=== PATIENT | female | born 1990 | race African-American/Black ===

== ENCOUNTER 2018-03-14 23:30 | Emergency (ER) | payer OTHER ==
--- NOTE | 2018-03-15 00:15 | EDPHY ---
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 Patient has a long history of depression. She is compliant with her antidepressants. She has been drinking and states she is drinking daily. In the last 8 months she has had significant stressors including divorce, losing custody of her child, being evicted and having a DUI. She has plans of going into the mountains and hanging herself. No prior suicide attempts. Denies any other ingestions. No fevers or chills. No cough. Has some mild nausea at this time. ROS: 10 systems were reviewed and were negative except those elements noted in the HPI. PMH: Depression, asthma Social History: Positive smoking, daily alcohol Family History: non-contributory Physical Exam: Gen: Awake, Alert, No Distress, tearful, slurred speech HEENT: Nose: no rhinorrhea Eyes: PERRLA, EOMI Mouth: Moist mucosa Neck: Supple, no JVD Chest: nontender, lungs clear to auscultation Heart: S1, S2 normal, no murmur Abd: Soft, non-tender, no guarding Back: no CVA tenderness, no midline tenderness Ext: no edema, non-tender Skin: no rash Neuro: CN II-XII intact, Sensation grossly intact, Strength 5/5 in bilateral upper and lower extremities (Marquis Wood) Constitutional: Initial Vital Signs Temperature (C) 36.5 C 03/14/18 23:39 Heart Rate 116 H 03/14/18 23:39 Respiratory Rate 03/14/18 23:39 Blood Pressure 104/74 03/14/18 23:39 O2 Sat (%) 96 03/14/18 23:39 O2 Delivery Mode Room Air Allergies/Adverse Reactions: No Known Allergies Allergy (Unverified 03/14/18 23:38) Home Medications: Medication Instructions Recorded Albuterol 03/14/18 Lexapro 03/14/18 Medical Decision Making ED Course/Re-evaluation: 27-year-old intoxicated suicidal patient with plan. Multiple recent stressors. She will require a sober mental health evaluation in the morning. She is otherwise medically cleared. [address] patient [address] out to Dr. Gallagher pending sober mental health evaluation. No issues during my care this patient overnight. (Marquis Wood) Other Provider: Care assumed at 6:37 a.m. With plan for mental health evaluation in this patient with a history of depression who presents with suicidal ideation and alcohol intoxication. 1209: Patient had mental health evaluation and is not currently suicidal. Hold was lifted by Dr. Honeycutt. (Ezequiel Gallagher) - Data Points Laboratory Results: Laboratory Results 03/15/18 00:10 03/15/18 00:10 03/15/18 03/15/18 03/15/18 00:10 00:10 00:10 WBC 8.68 10^3/uL 10^3/uL (3.80-9.50) RBC 5.06 10^6/uL 10^6/uL (4.18-5.33) Hgb 12.1 g/dL L g/dL (12.6-16.3) Hct 36.9 % L % (38.0-47.0) MCV 72.9 fL L fL (81.5-99.8) MCH 23.9 pg L pg (27.9-34.1) MCHC 32.8 g/dL g/dL (32.4-36.7) RDW 15.2 % % (11.5-15.2) Plt Count 450 10^3/uL H 10^3/uL (150-400) MPV 9.8 fL fL (8.7-11.7) Neut % (Auto) 53.6 % % (39.3-74.2) Lymph % (Auto) 35.7 % % (15.0-45.0) Knox % (Auto) 8.4 % % (4.5-13.0) Eos % (Auto) 1.5 % % (0.6-7.6) Baso % (Auto) 0.6 % % (0.3-1.7) Nucleat RBC Rel Count 0.0 % % (0.0-0.2) Absolute Neuts (auto) 4.65 10^3/uL 10^3/uL (1.70-6.50) Absolute Lymphs (auto) 3.10 10^3/uL H 10^3/uL (1.00-3.00) Absolute Monos (auto) 0.73 10^3/uL 10^3/uL (0.30-0.80) Absolute Eos (auto) 0.13 10^3/uL 10^3/uL (0.03-0.40) Absolute Basos (auto) 0.05 10^3/uL 10^3/uL (0.02-0.10) Absolute Nucleated RBC 0.00 10^3/uL 10^3/uL (0-0.01) Immature Gran % 0.2 % % (0.0-1.1) Immature Gran # 0.02 10^3/uL 10^3/uL (0.00-0.10) Sodium 148 mEq/L H mEq/L (135-145) Potassium 4.0 mEq/L mEq/L (3.5-5.2) Chloride 116 mEq/L H mEq/L (97-110) Carbon Dioxide 23 mEq/l mEq/l (22-31) Anion Gap 9 mEq/L mEq/L (6-14) BUN 14 mg/dL mg/dL (7-23) Creatinine 0.9 mg/dL mg/dL (0.6-1.0) Estimated GFR > 60 Glucose 102 mg/dL H mg/dL (70-100) Calcium 9.0 mg/dL mg/dL (8.5-10.4) Beta HCG, Qual NEGATIVE Urine Opiates Screen Urine Barbiturates Ur Phencyclidine Scrn Ur Amphetamine Screen U Benzodiazepines Scrn Urine Cocaine Screen U Marijuana (THC) Screen Ethyl Alcohol 298 mg/dL H mg/dL (0-10) 03/14/18 23:45 WBC RBC Hgb Hct MCV MCH MCHC RDW Plt Count MPV Neut % (Auto) Lymph % (Auto) Knox % (Auto) Eos % (Auto) Baso % (Auto) Nucleat RBC Rel Count Absolute Neuts (auto) Absolute Lymphs (auto) Absolute Monos (auto) Absolute Eos (auto) Absolute Basos (auto) Absolute Nucleated RBC Immature Gran % Immature Gran # Sodium Potassium Chloride Carbon Dioxide Anion Gap BUN Creatinine Estimated GFR Glucose Calcium Beta HCG, Qual Urine Opiates Screen NEGATIVE (NEGATIVE) Urine Barbiturates NEGATIVE (NEGATIVE) Ur Phencyclidine Scrn NEGATIVE (NEGATIVE) Ur Amphetamine Screen NEGATIVE (NEGATIVE) U Benzodiazepines Scrn NEGATIVE (NEGATIVE) Urine Cocaine Screen NEGATIVE (NEGATIVE) U Marijuana (THC) Screen NEGATIVE (NEGATIVE) Ethyl Alcohol Medications Given: Discontinued Medications Ibuprofen (Motrin) 600 mg PO EDNOW ONE Stop: 03/15/18 11:02 Last Admin: 03/15/18 11:06 Dose: 600 mg Departure - Departure Disposition: Home, Routine, Self-Care Clinical Impression: Suicidal ideation Alcohol intoxication Qualifiers: Complication of substance-induced condition: uncomplicated Qualified Code(s): F10.920 - Alcohol use, unspecified with intoxication, uncomplicated Condition: Good Instructions: Alcohol Intoxication (ED) Referrals: NONE *PRIMARY CARE P,. [Primary Care Provider] - As per Instructions
[2018-03-15 00:18] LABS: PLATELET COUNT 450 10^3/uL (150-400)
[2018-03-15 07:46] VITALS: BP 109/76
[2018-03-15] MEDS ORDERED: IBUPROFEN 600 MG TAB PO ONE (11:01)
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
--- NOTE | 2018-03-15 11:53 | ASMTCMCOM ---
CM Note CM Note Notes: An error was made in the TLC evaluation. It was cited that pt's suicide risk was "moderate". This was marked incorrectly and should be marked as "low". Date Signed: 03/15/2018 11:52 AM Electronically Signed By:Sanjuana Haskins
--- NOTE | 2018-03-15 13:04 | ASMTTCLDSP ---
TLC Discharge Disposition Disposition: Answers: Discharge If Answers: Yes DISCHARGED: Patient/family given suicide hotline info & SAMHSA brochure? Disposition Notes: Notes: Pt given the following recommendations: *Contact [facility] or return to the ED for any SI. [facility] phone number provided. *Contact [facility] tomorrow and explain missed appts/consult re insurancecoverage for on-going appts *Contact [facility] tomorrow and speak to psychiatry explaining that she has stopped medications and inquiring into medications moving forward Pt given the following resources: *The time and place of a secular mtg, in [place], addressing alcohol use *A flier for [place], a group in [place] for "sober" sports/athletics Discharge Concerns/Recommendations: Notes: In consultation with [facility] ED physician,Dr Gallagher and on-call psychiatrist,Dr Honeycutt, both concurred that Pt does not appear to meet 27-65 criteria requiring psychiatric hospitalization as Pt does not appear to be an imminent risk of harm to self due to a mental illness condition. Dr. Honeycutt provided telephone order read back vacating M1 hold at 11:54 AM Date and time M1 hold 03/15/2018 11:54 AM vacated (time format is hh:mm): Type of Hold: Answers: M1/72-hour Hold Hold initiated by: Answers: ED Physician Date Signed: 03/15/2018 01:04 PM Electronically Signed By:Sanjuana Haskins
== END 2018-03-15 12:25 | disposition home or self-care (01) ==
DX: R45.851 Suicidal ideations (principal); F10.920 Alcohol use, unspecified with intoxication, uncomplicated; F32.9 Major depressive disorder, single episode, unspecified; F17.200 Nicotine dependence, unspecified, uncomplicated; Z79.899 Other long term (current) drug therapy
CPT/HCPCS: 80305; G0480

== ENCOUNTER 2018-05-19 02:38 | Inpatient (IN) | payer OTHER ==
[2018-05-19] MEDS ORDERED: NS 1,000 ML IV ONE ×2 (02:41→04:00)
--- NOTE | 2018-05-19 02:45 | EDPHY ---
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 They are unsure exactly what she took or how much and when. However she presents emergency with a bottle of Seroquel and Lamictal. She smells of alcohol and is highly intoxicated. She is somewhat upon arrival. Unable to answer my questions appropriately. Past Medical History: History of depression, asthma, anxiety Past Surgical History: No recent surgical history Social History: Alcohol this evening. Family History: Noncontributory ROS REVIEW OF SYSTEMS: Limited due to mental state and alcohol intoxication. Exam Constitutional intoxicated, smells of alcohol, somnolent, triage nursing summary reviewed, vital signs reviewed, somnolent, tachycardic. Eyes normal conjunctivae and sclera, EOMI, PERRLA. HENT normal inspection, atraumatic, moist mucus membranes, no epistaxis, neck supple/ no meningismus, no raccoon eyes. Respiratory clear to auscultation bilaterally, normal breath sounds, no respiratory distress, no wheezing. Cardiovascular rate normal, regular rhythm, no murmur, no edema, distal pulses normal. Gastrointestinal soft, non-tender, no rebound, no guarding, normal bowel sounds, no distension, no pulsatile mass. Genitourinary no CVA tenderness. Musculoskeletal no midline vertebral tenderness, full range of motion, no calf swelling, no tenderness of extremities, no meningismus, good pulses, neurovascularly intact. Skin pink, warm, & dry, no rash, skin atraumatic. Neurologic somnolent, intoxicated, smells of alcohol, slurring speech, Psychiatric intoxicated Heme/Lymph/Immune no lymphadenopathy. Differential Diagnosis: Includes but is not limited to in a particular order: Acute alcohol intoxication, drug overdose, polysubstance abuse, medication overdose, suicidal ideation, depression Medical Decision Making: Plan for this patient IV establishment IV fluid bolus , compliance monitor, EKG, basic labs, patient is on M1 hold by police. Will need mental health evaluation after medically cleared. Re-evaluation: EKG interpretation by me on record in [facility] system. Impression time of EKG 2:56 a.m. Sinus tach 117, no signs of acute ischemia. no prolonged intervals. Serum alcohol level 262. 0600AM: Patient sleeping. NAD. 0630AM: Patient signed over to Dr. Gallagher, patient pending sobriety, on m1 hold, needs eval once sober. (Thiago Merrill) Constitutional: Initial Vital Signs O2 Sat (%) 99 05/19/18 02:41 O2 Delivery Mode Room Air O2 (L/minute) 2 Allergies/Adverse Reactions: No Known Allergies Allergy (Verified 05/19/18 13:27) Home Medications: Medication Instructions Recorded Cholecalciferol Vit D3 [Vitamin D3 5,000 units PO DAILY 05/19/18 (*)] QUEtiapine FUMARATE [Seroquel 25 25 - 50 mg PO HS 05/19/18 mg (*)] lamoTRIgine [Lamictal] 150 mg PO DAILY 05/19/18 Medical Decision Making Other Provider: Care assumed at 6:[address] Merrill, this 27-year-old woman arrives with acute alcohol intoxication and overdose. Vital signs at 2:47 a.m. 110/64 heart rate 121 respiratory rate 16 sat 94% temperature 36.4 degrees, heart rate down to 100 at 6:00 a.m.. 1258: Patient is still pretty sleepy, unable to have a conversation, unable to walk. She says she took "the whole bottle" of Seroquel but it is unclear how many she actually took. At this point we are 10 hrs into her emergency visit and she still is severely symptomatic from her overdose. Plan for hospital admission with psychiatric evaluation when medically clear. 1301: ICU admit, discussed with Arcadio Tate. (Ezequiel Gallagher) - Data Points Laboratory Results: Laboratory Results 05/19/18 02:58 05/19/18 02:58 05/19/18 05/19/18 05/19/18 10:50 02:58 02:58 WBC RBC Hgb Hct MCV MCH MCHC RDW Plt Count MPV Neut % (Auto) Lymph % (Auto) [place] % (Auto) Eos % (Auto) Baso % (Auto) Nucleat RBC Rel Count Absolute Neuts (auto) Absolute Lymphs (auto) Absolute Monos (auto) Absolute Eos (auto) Absolute Basos (auto) Absolute Nucleated RBC Immature Gran % Immature Gran # Sodium Potassium Chloride Carbon Dioxide Anion Gap BUN Creatinine Estimated GFR Glucose Calcium Total Bilirubin Conjugated Bilirubin Unconjugated Bilirubin AST ALT Alkaline Phosphatase Total Protein Albumin Beta HCG, Qual NEGATIVE Salicylates Urine Opiates Screen NEGATIVE (NEGATIVE) Acetaminophen Urine Barbiturates NEGATIVE (NEGATIVE) Lamotrigine Pending Ur Phencyclidine Scrn NEGATIVE (NEGATIVE) Ur Amphetamine Screen NEGATIVE (NEGATIVE) U Benzodiazepines Scrn NEGATIVE (NEGATIVE) Urine Cocaine Screen NEGATIVE (NEGATIVE) U Marijuana (THC) Screen NEGATIVE (NEGATIVE) Ethyl Alcohol 05/19/18 05/19/18 02:58 02:58 WBC 7.30 10^3/uL 10^3/uL (3.80-9.50) RBC 5.17 10^6/uL 10^6/uL (4.18-5.33) Hgb 12.0 g/dL L g/dL (12.6-16.3) Hct 38.4 % % (38.0-47.0) MCV 74.3 fL L fL (81.5-99.8) MCH 23.2 pg L pg (27.9-34.1) MCHC 31.3 g/dL L g/dL (32.4-36.7) RDW 16.0 % H % (11.5-15.2) Plt Count 386 10^3/uL 10^3/uL (150-400) MPV 10.3 fL fL (8.7-11.7) Neut % (Auto) 56.8 % % (39.3-74.2) Lymph % (Auto) 33.7 % % (15.0-45.0) [place] % (Auto) 6.7 % % (4.5-13.0) Eos % (Auto) 2.1 % % (0.6-7.6) Baso % (Auto) 0.4 % % (0.3-1.7) Nucleat RBC Rel Count 0.0 % % (0.0-0.2) Absolute Neuts (auto) 4.15 10^3/uL 10^3/uL (1.70-6.50) Absolute Lymphs (auto) 2.46 10^3/uL 10^3/uL (1.00-3.00) Absolute Monos (auto) 0.49 10^3/uL 10^3/uL (0.30-0.80) Absolute Eos (auto) 0.15 10^3/uL 10^3/uL (0.03-0.40) Absolute Basos (auto) 0.03 10^3/uL 10^3/uL (0.02-0.10) Absolute Nucleated RBC 0.00 10^3/uL 10^3/uL (0-0.01) Immature Gran % 0.3 % % (0.0-1.1) Immature Gran # 0.02 10^3/uL 10^3/uL (0.00-0.10) Sodium 147 mEq/L H mEq/L (135-145) Potassium 3.8 mEq/L mEq/L (3.5-5.2) Chloride 113 mEq/L H mEq/L (97-110) Carbon Dioxide 23 mEq/l mEq/l (22-31) Anion Gap 11 mEq/L mEq/L (6-14) BUN 13 mg/dL mg/dL (7-23) Creatinine 1.0 mg/dL mg/dL (0.6-1.0) Estimated GFR > 60 Glucose 85 mg/dL mg/dL (70-100) Calcium 9.2 mg/dL mg/dL (8.5-10.4) Total Bilirubin 0.3 mg/dL mg/dL (0.1-1.4) Conjugated Bilirubin 0.3 mg/dL mg/dL (0.0-0.5) Unconjugated Bilirubin 0.0 mg/dL mg/dL (0.0-1.1) AST 24 IU/L IU/L (14-46) ALT 27 IU/L IU/L (9-52) Alkaline Phosphatase 64 IU/L IU/L (38-126) Total Protein 7.8 g/dL g/dL (6.3-8.2) Albumin 4.3 g/dL g/dL (3.5-5.0) Beta HCG, Qual Salicylates < 1.0 mg/dL L mg/dL (2.0-20.0) Urine Opiates Screen Acetaminophen < 10 mcg/mL L mcg/mL (10-30) Urine Barbiturates Lamotrigine Ur Phencyclidine Scrn Ur Amphetamine Screen U Benzodiazepines Scrn Urine Cocaine Screen U Marijuana (THC) Screen Ethyl Alcohol 262 mg/dL H mg/dL (0-10) Medications Given: Discontinued Medications Sodium Chloride (Ns) 1,000 mls @ 0 mls/hr IV EDNOW ONE; Wide Open PRN Reason: Protocol Stop: 05/19/18 02:42 Last Admin: 05/19/18 03:10 Dose: 1,000 mls Sodium Chloride (Ns) 1,000 mls @ 0 mls/hr IV ONCE ONE PRN Reason: Wide Open Stop: 05/19/18 04:01 Last Admin: 05/19/18 04:07 Dose: 1,000 mls Departure - Departure Disposition: [facility] Acute Clinical Impression: Purposeful non-suicidal drug ingestion Alcohol intoxication Qualifiers: Complication of substance-induced condition: uncomplicated Qualified Code(s): F10.920 - Alcohol use, unspecified with intoxication, uncomplicated Depression Qualifiers: Depression Type: other depression Qualified Code(s): F32.89 - Other specified depressive episodes Condition: Good
[2018-05-19 03:13] LABS: PLATELET COUNT 386 10^3/uL (150-400)
--- NOTE | 2018-05-19 07:44 | CPEKG ---
Test Reason : OPEN Blood Pressure : / mmHG Vent. Rate : 117 BPM Atrial Rate : 117 BPM P-R Int : 156 ms QRS Dur : 086 ms QT Int : 336 ms P-R-T Axes : 043 027 027 degrees QTc Int : 469 ms Sinus tachycardia Confirmed by Thiago Merrill ([id number]) on 05/19/2018 7:43:54 AM Referred By: Thiago Merrill Confirmed By:Thiago Merrill
[2018-05-19] MEDS ORDERED: LORazepam 0.5 MG TAB PO PRN (14:41)
[2018-05-19] MEDS ORDERED: HYDROmorphONE/DILAUDID 1 MG/ML INJ IVP PRN (14:41)
[2018-05-19] MEDS ORDERED: LORazepam 2 MG/ML INJ IVP PRN (14:41)
[2018-05-19] MEDS ORDERED: diphenhydrAMINE 25 MG CAP PO PRN (14:41)
[2018-05-19] MEDS ORDERED: oxyCODONE IR 5 MG TAB PO PRN (14:41)
[2018-05-19] MEDS ORDERED: ONDANSETRON 4 MG/2 ML VIAL IVP PRN (14:41)
[2018-05-19] MEDS ORDERED: PROMETHAZINE HCL 25 MG/ML INJ IVP PRN (14:41)
[2018-05-19] MEDS ORDERED: ONDANSETRON DISINTEGRATING 4 MG TAB PO PRN (14:41)
[2018-05-19] MEDS ORDERED: HYDROCODONE/APAP 5/325 TAB PO PRN (14:41)
[2018-05-19] MEDS ORDERED: ACETAMINOPHEN 325 MG TAB PO PRN (14:41)
[2018-05-19] MEDS ORDERED: NS 1,000 ML IV SCH (14:45)
--- NOTE | 2018-05-19 17:17 | PDGENHP ---
History and Physical - Chief Complaint overdose, suicide attempt - History of Present Illness 27 yo F brought in from home with concerns raised by her mother that she may have tried to kill herself by overdose. She was also acutely intoxicated with alcohol on arrival to the ER. She is on seroquel and lamictal at home and told ER doctor that she took her 'whole bottle' of seroquel, however unclear how many pills were in the bottle. She remains very somnolent at the time of my evaluation, able to follow commands and wake up but not giving full answers to questions. Her vital signs are stable and her exam is not concerning. History Information - Allergies/Home Medication List Allergies/Adverse Reactions: No Known Allergies Allergy (Verified 05/19/18 13:27) Home Medications: Cholecalciferol Vit D3 [Vitamin D3 (*)] 5,000 units PO DAILY 05/19/18 [Last Taken Unknown] QUEtiapine FUMARATE [Seroquel 25 mg (*)] 25 - 50 mg PO HS 05/19/18 [Last Taken Unknown] lamoTRIgine [Lamictal] 150 mg PO DAILY 05/19/18 [Last Taken Unknown] I have personally reviewed and updated: family history, medical history, social history, surgical history - Past Medical History asthma, psychiatric history (depression/anxiety) - Surgical History Reports: no pertinent surgical hx - Family History Additional family history: unobtainable - Social History Smoking Status: Current every day smoker Additional social history: unobtainable--she is intoxicated on arrival Review of Systems Review of Systems: unobtainable 2/2 mental status Physical Exam Physical Exam: Temp Pulse Resp BP Pulse Ox 37.1 C 116 H 14 117/79 94 05/19/18 14:00 05/19/18 16:00 05/19/18 16:00 05/19/18 16:00 05/19/18 16:00 Constitutional: no apparent distress, unkempt Eyes: PERRL Ears, Nose, Mouth, Throat: moist mucous membranes, poor dentition Cardiovascular: regular rate and rhythym, no murmur, rub, or gallop Respiratory: no respiratory distress, no rales or rhonchi Gastrointestinal: normoactive bowel sounds, soft, non-tender abdomen Skin: warm, normal color Musculoskeletal: full muscle strength Neurologic: No AAOx3 Psychiatric: encephalopathic Lab Data & Imaging Review 05/19/18 02:58 05/19/18 02:58 WBC 7.30 10^3/uL (3.80-9.50) 05/19/18 02:58 RBC 5.17 10^6/uL (4.18-5.33) 05/19/18 02:58 Hgb 12.0 g/dL (12.6-16.3) L 05/19/18 02:58 Hct 38.4 % (38.0-47.0) 05/19/18 02:58 MCV 74.3 fL (81.5-99.8) L 05/19/18 02:58 MCH 23.2 pg (27.9-34.1) L 05/19/18 02:58 MCHC 31.3 g/dL (32.4-36.7) L 05/19/18 02:58 RDW 16.0 % (11.5-15.2) H 05/19/18 02:58 Plt Count 386 10^3/uL (150-400) 05/19/18 02:58 MPV 10.3 fL (8.7-11.7) 05/19/18 02:58 Neut % (Auto) 56.8 % (39.3-74.2) 05/19/18 02:58 Lymph % (Auto) 33.7 % (15.0-45.0) 05/19/18 02:58 [place] % (Auto) 6.7 % (4.5-13.0) 05/19/18 02:58 Eos % (Auto) 2.1 % (0.6-7.6) 05/19/18 02:58 Baso % (Auto) 0.4 % (0.3-1.7) 05/19/18 02:58 Nucleat RBC Rel Count 0.0 % (0.0-0.2) 05/19/18 02:58 Absolute Neuts (auto) 4.15 10^3/uL (1.70-6.50) 05/19/18 02:58 Absolute Lymphs (auto) 2.46 10^3/uL (1.00-3.00) 05/19/18 02:58 Absolute Monos (auto) 0.49 10^3/uL (0.30-0.80) 05/19/18 02:58 Absolute Eos (auto) 0.15 10^3/uL (0.03-0.40) 05/19/18 02:58 Absolute Basos (auto) 0.03 10^3/uL (0.02-0.10) 05/19/18 02:58 Absolute Nucleated RBC 0.00 10^3/uL (0-0.01) 05/19/18 02:58 Immature Gran % 0.3 % (0.0-1.1) 05/19/18 02:58 Immature Gran # 0.02 10^3/uL (0.00-0.10) 05/19/18 02:58 Sodium 147 mEq/L (135-145) H 05/19/18 02:58 Potassium 3.8 mEq/L (3.5-5.2) 05/19/18 02:58 Chloride 113 mEq/L (97-110) H 05/19/18 02:58 Carbon Dioxide 23 mEq/l (22-31) 05/19/18 02:58 Anion Gap 11 mEq/L (6-14) 05/19/18 02:58 BUN 13 mg/dL (7-23) 05/19/18 02:58 Creatinine 1.0 mg/dL (0.6-1.0) 05/19/18 02:58 Estimated GFR > 60 05/19/18 02:58 Glucose 85 mg/dL (70-100) 05/19/18 02:58 Calcium 9.2 mg/dL (8.5-10.4) 05/19/18 02:58 Total Bilirubin 0.3 mg/dL (0.1-1.4) 05/19/18 02:58 Conjugated Bilirubin 0.3 mg/dL (0.0-0.5) 05/19/18 02:58 Unconjugated Bilirubin 0.0 mg/dL (0.0-1.1) 05/19/18 02:58 AST 24 IU/L (14-46) 05/19/18 02:58 ALT 27 IU/L (9-52) 05/19/18 02:58 Alkaline Phosphatase 64 IU/L (38-126) 05/19/18 02:58 Total Protein 7.8 g/dL (6.3-8.2) 05/19/18 02:58 Albumin 4.3 g/dL (3.5-5.0) 05/19/18 02:58 Beta HCG, Qual NEGATIVE 05/19/18 02:58 Salicylates < 1.0 mg/dL (2.0-20.0) L 05/19/18 02:58 Urine Opiates Screen NEGATIVE (NEGATIVE) 05/19/18 10:50 Acetaminophen < 10 mcg/mL (10-30) L 05/19/18 02:58 Urine Barbiturates NEGATIVE (NEGATIVE) 05/19/18 10:50 Ur Phencyclidine Scrn NEGATIVE (NEGATIVE) 05/19/18 10:50 Ur Amphetamine Screen NEGATIVE (NEGATIVE) 05/19/18 10:50 U Benzodiazepines Scrn NEGATIVE (NEGATIVE) 05/19/18 10:50 Urine Cocaine Screen NEGATIVE (NEGATIVE) 05/19/18 10:50 U Marijuana (THC) Screen NEGATIVE (NEGATIVE) 05/19/18 10:50 Ethyl Alcohol 262 mg/dL (0-10) H 05/19/18 02:58 Visualized and Interpreted EKG results: Yes EKG additional interpertation: sinus tachycardia Assessment & Plan Assessment: Alcohol intoxication (Acute) Depression (Acute) Purposeful non-suicidal drug ingestion (Acute) 27 yo F with PMH of anxiety and depression presenting intoxicated and with intentional drug overdose as suicide attempt # toxic encephalopathy: in the setting of alcohol intoxication and intentional overdose of seroquel, she is somnolent but arousable, ecg showing sinus tachycardia but no other abnormalities. Monitoring in ICU. # intentional drug overdose: on seroquel and alcohol, no other ingestions suspected by history, as above, she is protecting her airway, no qt prolongation # suicide attempt: as above, on M1 hold, TLC to evaluate # IP status, high risk presenting issues requiring ICU level care Patient new to my care. Old records reviewed and summarized as above. Care plan reviewed with eR doctor.
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
--- NOTE | 2018-05-19 20:48 | ASMTTCLDSP ---
[facility] Discharge Disposition Disposition: Answers: Transfer Discharge Concerns/Recommendations: Notes: In consultation with [facility] on-call psychiatrist, Marion Amezcua MD, concurred that pt appears to meet 27-65 criteria requiring psychiatric hospitalization as pt appears to be at risk of harm to self due to a mental illness condition. Pt was read the Patient Rights and Responsibilities Statement on 05/19/18 21:00, original placed on chart, and was given photocopy of Rights. Pt signed the Patient Rights. Pt was given the 3N prohibited belongings list while in the ED. For Transfers, Accepting [facility] Facility: For Transfers, Reason Dual Dx Patient is Being Transferred: Date Signed: 05/19/2018 08:47 PM Electronically Signed By:Quiana Reeves
[2018-05-19 22:02] VITALS: BP 135/85
--- NOTE | 2018-05-20 16:30 | PDMN ---
Medical Necessity Medical necessity: Pt meets IP criteria a of 05/19/18 per MD and MCG M-153 (Drug ingestion or overdose); presents on M1 hold after attempting suicide with overdose on Seroquel and lamictal.
--- NOTE | 2018-05-25 17:32 | GDS ---
[f rep st] DISCHARGE SUMMARY CONSULTATIONS: Behavioral Health. PROCEDURES PERFORMED: None. HOSPITAL COURSE BY PROBLEM: A 27-year-old with history of anxiety and depression, presenting with in tentional drug overdose as a suicide attempt. 1. Toxic encephalopathy in the setting of acute alcohol intoxication and intentional drug overdose. This resolved over the period of her monitoring. 2. Intentional drug overdose. Sounds like she took mostly Seroquel and alcohol and again, her sympt oms resolved relatively quickly. She did not have any significant complications. 3. Suicide attempt with underlying depression and anxiety. She was cleared to be seen by Behavioral Health and further treatment was under their discretion. 4. Disposition. Patient discharged to follow up with Behavioral Health. Greater than 35 minutes spent on discharge, the majority of which coordinating care. /[id number]/MODL
--- NOTE | 2018-05-26 05:37 | GDS ---
[f rep st] DISCHARGE SUMMARY DISCHARGE ORDER: Please enter discharge order on this patient. This should be effective 05/19/2018. /[id number]/MODL
== END 2018-05-19 22:15 | DRG 917 ==
LOC: EDUNIT# → OBSVTOIN 13:35 → F2N 13:55
PROVIDERS: ADMIT Internal Medicine; ATTEND Internal Medicine
DX: T43.8X2A Poisoning by other psychotropic drugs, intentional self-harm, initial encounter (principal); T51.0X2A Toxic effect of ethanol, intentional self-harm, initial encounter; G92 Toxic encephalopathy; F10.921 Alcohol use, unspecified with intoxication delirium; F33.2 Major depressive disorder, recurrent severe without psychotic features; Y90.8 Blood alcohol level of 240 mg/100 ml or more; F17.210 Nicotine dependence, cigarettes, uncomplicated
CPT/HCPCS: 80175-90; 80305; G0480